=== PATIENT | female | born 1950 | race Caucasian/White ===

== ENCOUNTER 2023-12-29 20:05 | Emergency (ER) | payer OTHER, MEDICAID ==
[~2023-12-29] VITALS: Ht 157.5 cm; Wt 55.3 kg
[2023-12-29 20:08] VITALS: BP_SYST 142; PULSE 86; RESP 14; TEMP 97.2; O2SAT 96
[2023-12-29] MEDS: IBUPROFEN 600 MG TABLET PO ONE (20:56)
[2023-12-29] MEDS: HYDROcodone/ACETAMIN 5-325 MG TAB (NORCO/ VICODIN) PO ONE (20:57)
[2023-12-29] MEDS ORDERED: TRAM50TA2 PO (21:45)
[2023-12-29] MEDS ORDERED: IBUP-1969 PO (21:45)
[2023-12-29 22:57] VITALS: BP_SYST 139; PULSE 86; RESP 14; TEMP 97.2; O2SAT 96
== END 2023-12-29 22:57 | disposition home or self-care (01) ==
LOC: SED 20:05
DX: S93.491A Sprain of other ligament of right ankle, initial encounter (principal); S93.691A Other sprain of right foot, initial encounter; I10 Essential (primary) hypertension; J44.9 Chronic obstructive pulmonary disease, unspecified; Z88.1 Allergy status to other antibiotic agents; X50.1XXA Overexertion from prolonged static or awkward postures, initial encounter; Y93.89 Activity, other specified; Y92.89 Other specified places as the place of occurrence of the external cause; Y99.8 Other external cause status
CPT/HCPCS: 99284

== ENCOUNTER 2024-01-04 13:03 | Inpatient (IN) | payer OTHER, MEDICAID ==
[~2024-01-04] VITALS: Ht 154.9 cm; Wt 55.3 kg
[~2024-01-04 13:03] MED LIST: IBUP-1969 PO; TRAM50TA2 PO
[2024-01-04 13:08] VITALS: BP_SYST 130; PULSE 86; RESP 16; TEMP 98; O2SAT 94
[2024-01-04] MEDS ORDERED: NEU300 PO (13:57)
[2024-01-04] MEDS ORDERED: BACL10TA PO (13:57)
[2024-01-04] MEDS ORDERED: ASPI-1393 PO (13:57)
[2024-01-04] MEDS ORDERED: OLAN20TA82 PO (13:57)
[2024-01-04] MEDS ORDERED: METO-442 PO (13:57)
[2024-01-04] MEDS ORDERED: ESCI10TA PO (13:57)
[2024-01-04] MEDS ORDERED: RAME8TAB15 PO (13:57)
[2024-01-04] MEDS ORDERED: CARB100T PO (13:57)
[2024-01-04] MEDS ORDERED: FLUT1AER INH (13:57)
[2024-01-04] MEDS ORDERED: BENZ1TAB7 PO (13:57)
[2024-01-04 14:08] LABS: BASOPHILS % (AUTO) 0.4 % (0.0-2.0); EOSINOPHILS # (AUTO) 0.1 K/uL (0.0-0.4); EOSINOPHILS % (AUTO) 1.9 % (0.0-4.0); HEMATOCRIT 45.1 % (36-48); HEMOGLOBIN 15.1 g/dL (12.0-16.0); LYMPHOCYTES # (AUTO) 3.1 K/uL (1.0-5.5); LYMPHOCYTES % (AUTO) 41.3 % (20.5-51.5); MEAN CORPUSCULAR HEMOGLOBIN 32 pg (27-31); MEAN CORPUSCULAR HGB CONC 34 % (32-36); MEAN CORPUSCULAR VOLUME 96 fL (79.0-98.0); MONOCYTES # (AUTO) 0.7 K/uL (0.0-1.0); MONOCYTES % (AUTO) 9.4 % (1.7-9.3); NEUTROPHILS # (AUTO) 3.5 K/uL (1.8-7.7); PLATELET COUNT (AUTO) 187 K/uL (130-430); RED BLOOD CELL COUNT(AUTO) 4.68 MIL/uL (4.2-6.2); RED CELL DISTRIBUTION WIDTH 13.8 % (9.0-15.0); WHITE BLOOD COUNT (AUTO) 7.5 K/uL (4.8-10.8)
[2024-01-04 14:32] LABS: PROTHROMBIN TIME 10.5 SECS (9.5-12.5)
[2024-01-04 14:42] LABS: ALANINE AMINOTRANSFERASE 78 U/L (12-78); ANION GAP 3 (5-15); ASPARTATE AMINOTRANSFERASE 78 U/L (10-37); BILIRUBIN,DIRECT 0.2 mg/dL (0.0-0.3); CALCIUM 8.9 mg/dL (8.4-11.0); CARBON DIOXIDE 35 mmol/L (23-29); CHLORIDE 102 mmol/L (98-107); CREATINE KINASE, TOTAL 76 U/L (26-192); CREATININE 0.54 mg/dL (0.55-1.30); GLUCOSE 98 mg/dL (74-106); POTASSIUM 4.3 mmol/L (3.5-5.1); SODIUM SERUM 140 mmol/L (136-145); TOTAL BILIRUBIN 0.8 mg/dL (0.0-1.0); TOTAL PROTEIN, SERUM 7.5 g/dL (6.4-8.3); UREA NITROGEN, BLOOD 11 mg/dL (8-21)
[2024-01-04 17:26] LABS: BILIRUBIN,URINE NEGATIVE (NEGATIVE); BLOOD, URINE NEGATIVE (NEGATIVE); CLARITY/URINE CLEAR (CLEAR); COLOR,URINE YELLOW (YELLOW); GLUCOSE,URINE NEGATIVE (NEGATIVE); KETONES,URINE NEGATIVE (NEGATIVE); LEUKOCYTE ESTERASE ,URINE NEGATIVE (NEGATIVE); NITRITE, URINE NEGATIVE (NEGATIVE); PH,URINE 6.5 (5.0-8.0); PROTEIN URINE NEGATIVE (NEGATIVE)
[2024-01-04] MEDS ORDERED: ONDANSETRON HCL 4 MG/2 ML VIAL IVP PRN (18:15)
[2024-01-04] MEDS: ALBUTEROL SULFATE 0.083% 2.5 MG/3 ML VIAL.NEB INH SCH (19:35)
[2024-01-04 19:42] VITALS: BP_SYST 140; PULSE 75; O2SAT 92
[2024-01-04 19:49] VITALS: O2SAT 92
[2024-01-04 20:15] VITALS: BP_SYST 150; PULSE 71; RESP 22; TEMP 97.7; O2SAT 94
[2024-01-04 23:26] VITALS: O2SAT 91
[2024-01-04] MEDS: LORazepam 2 MG/ML VIAL IVP PRN (23:57)
[2024-01-04] MEDS: ACETAMINOPHEN 325 MG TABLET PO PRN (23:59)
[2024-01-05] VITALS (11 sets, daily range): BP systolic 126–140; PULSE 65–105; RESP 18–20; TEMP 97.1–97.5; O2SAT 90–98
[2024-01-05 13:09] LABS: BASOPHILS % (AUTO) 0.3 % (0.0-2.0); EOSINOPHILS # (AUTO) 0.1 K/uL (0.0-0.4); EOSINOPHILS % (AUTO) 0.9 % (0.0-4.0); HEMATOCRIT 48.7 % (36-48); HEMOGLOBIN 16.1 g/dL (12.0-16.0); LYMPHOCYTES % (AUTO) 32.4 % (20.5-51.5); MEAN CORPUSCULAR HEMOGLOBIN 32 pg (27-31); MEAN CORPUSCULAR HGB CONC 33 % (32-36); MEAN CORPUSCULAR VOLUME 97 fL (79.0-98.0); MONOCYTES # (AUTO) 0.5 K/uL (0.0-1.0); MONOCYTES % (AUTO) 8.6 % (1.7-9.3); NEUTROPHILS # (AUTO) 3.6 K/uL (1.8-7.7); NEUTROPHILS % (AUTO) 57.8 % (40.0-70.0); PLATELET COUNT (AUTO) 153 K/uL (130-430); RED BLOOD CELL COUNT(AUTO) 4.99 MIL/uL (4.2-6.2); RED CELL DISTRIBUTION WIDTH 13.7 % (9.0-15.0); WHITE BLOOD COUNT (AUTO) 6.2 K/uL (4.8-10.8)
[2024-01-05 13:26] LABS: ALANINE AMINOTRANSFERASE 93 U/L (12-78); ALBUMIN 3.3 g/dL (3.4-4.8); ANION GAP 8 (5-15); ASPARTATE AMINOTRANSFERASE 88 U/L (10-37); CALCIUM 8.8 mg/dL (8.4-11.0); CARBON DIOXIDE 30 mmol/L (23-29); CHLORIDE 101 mmol/L (98-107); CREATININE 0.58 mg/dL (0.55-1.30); GLUCOSE 97 mg/dL (74-106); SODIUM SERUM 139 mmol/L (136-145); TOTAL BILIRUBIN 0.8 mg/dL (0.0-1.0); TOTAL PROTEIN, SERUM 7.3 g/dL (6.4-8.3); UREA NITROGEN, BLOOD 11 mg/dL (8-21)
[2024-01-05] MEDS: METOPROLOL TARTRATE 50 MG TABLET PO SCH (20:28)
[2024-01-05] MEDS ORDERED: OLANZapine 10 MG TABLET PO SCH (21:00)
[2024-01-06] VITALS (10 sets, daily range): BP systolic 116–132; PULSE 65–97; RESP 16–18; TEMP 96.7–97.9; O2SAT 90–95
[2024-01-06 05:17] LABS: BASOPHILS % (AUTO) 0.3 % (0.0-2.0); EOSINOPHILS % (AUTO) 0.5 % (0.0-4.0); HEMOGLOBIN 14.3 g/dL (12.0-16.0); LYMPHOCYTES # (AUTO) 2.5 K/uL (1.0-5.5); LYMPHOCYTES % (AUTO) 30.1 % (20.5-51.5); MEAN CORPUSCULAR HEMOGLOBIN 33 pg (27-31); MEAN CORPUSCULAR HGB CONC 34 % (32-36); MEAN CORPUSCULAR VOLUME 96 fL (79.0-98.0); MONOCYTES # (AUTO) 0.7 K/uL (0.0-1.0); MONOCYTES % (AUTO) 8.9 % (1.7-9.3); NEUTROPHILS % (AUTO) 60.2 % (40.0-70.0); PLATELET COUNT (AUTO) 186 K/uL (130-430); RED BLOOD CELL COUNT(AUTO) 4.36 MIL/uL (4.2-6.2); WHITE BLOOD COUNT (AUTO) 8.3 K/uL (4.8-10.8)
[2024-01-06 05:22] LABS: ALANINE AMINOTRANSFERASE 82 U/L (12-78); ALBUMIN 2.8 g/dL (3.4-4.8); ANION GAP 6 (5-15); ASPARTATE AMINOTRANSFERASE 88 U/L (10-37); CARBON DIOXIDE 32 mmol/L (23-29); CHLORIDE 104 mmol/L (98-107); GLUCOSE 104 mg/dL (74-106); POTASSIUM 3.3 mmol/L (3.5-5.1); SODIUM SERUM 142 mmol/L (136-145); TOTAL BILIRUBIN 0.8 mg/dL (0.0-1.0); TOTAL PROTEIN, SERUM 6.9 g/dL (6.4-8.3)
[2024-01-06 06:29] LABS: UREA NITROGEN, BLOOD 12 mg/dL (8-21)
[2024-01-06] MEDS: CELECOXIB 100 MG CAPSULE ONE (07:50)
[2024-01-06] MEDS ORDERED: ESCITALOPRAM OXALATE 10 MG TABLET PO SCH (09:00)
[2024-01-06] MEDS: FLUTICASONE/VILANTEROL 1 EACH BLST.W.DEV INH SCH (09:00)
[2024-01-06] MEDS: NICOTINE 7 MG/24 HR PATCH.TD24 TD SCH (10:27)
[2024-01-06] MEDS: ASPIRIN 81 MG TABLET(ECOTRIN) PO SCH (10:45)
[2024-01-06] MEDS: NACL 0.9% 1,000 ML IV PRN (10:47)
[2024-01-06] MEDS: POTASSIUM CHLORIDE 20 MEQ TABLET.ER PO SCH (13:24)
[2024-01-06] MEDS ORDERED: ALBUTEROL SULFATE 0.083% 2.5 MG/3 ML VIAL.NEB INH PRN (16:30)
[2024-01-06] MEDS: BUDESONIDE 0.5 MG/2 ML AMPUL.NEB INH SCH (20:08)
[2024-01-06] MEDS ORDERED: POTASSIUM CHLORIDE 20 MEQ TABLET.ER PO SCH (21:00)
[2024-01-07] VITALS: BP_SYST 113; PULSE 65; RESP 18; TEMP 97.3; O2SAT 97
[2024-01-07 06:45] LABS: ALANINE AMINOTRANSFERASE 76 U/L (12-78); ALBUMIN 2.7 g/dL (3.4-4.8); ANION GAP 6 (5-15); ASPARTATE AMINOTRANSFERASE 84 U/L (10-37); CALCIUM 8.2 mg/dL (8.4-11.0); CARBON DIOXIDE 29 mmol/L (23-29); CHLORIDE 108 mmol/L (98-107); GLUCOSE 86 mg/dL (74-106); POTASSIUM 4.1 mmol/L (3.5-5.1); SODIUM SERUM 143 mmol/L (136-145); TOTAL BILIRUBIN 0.6 mg/dL (0.0-1.0); TOTAL PROTEIN, SERUM 6.5 g/dL (6.4-8.3); UREA NITROGEN, BLOOD 9 mg/dL (8-21)
[2024-01-07 07:10] VITALS: PULSE 84; O2SAT 92
[2024-01-07 07:51] LABS: BASOPHILS % (AUTO) 0.3 % (0.0-2.0); EOSINOPHILS # (AUTO) 0.1 K/uL (0.0-0.4); EOSINOPHILS % (AUTO) 1.1 % (0.0-4.0); HEMATOCRIT 43.8 % (36-48); HEMOGLOBIN 14.7 g/dL (12.0-16.0); LYMPHOCYTES # (AUTO) 3.4 K/uL (1.0-5.5); LYMPHOCYTES % (AUTO) 37.7 % (20.5-51.5); MEAN CORPUSCULAR HEMOGLOBIN 33 pg (27-31); MEAN CORPUSCULAR HGB CONC 34 % (32-36); MEAN CORPUSCULAR VOLUME 98 fL (79.0-98.0); MONOCYTES # (AUTO) 0.7 K/uL (0.0-1.0); MONOCYTES % (AUTO) 7.9 % (1.7-9.3); NEUTROPHILS # (AUTO) 4.8 K/uL (1.8-7.7); PLATELET COUNT (AUTO) 168 K/uL (130-430); RED BLOOD CELL COUNT(AUTO) 4.49 MIL/uL (4.2-6.2); RED CELL DISTRIBUTION WIDTH 13.6 % (9.0-15.0); WHITE BLOOD COUNT (AUTO) 9.1 K/uL (4.8-10.8)
[2024-01-07 10:20] VITALS: O2SAT 93
[2024-01-07 12:28] VITALS: BP_SYST 147; PULSE 84; RESP 17; TEMP 97.2; O2SAT 96
[2024-01-07 14:50] VITALS: BP_SYST 142; PULSE 78; RESP 18; TEMP 97.8; O2SAT 98
[2024-01-07 16:31] VITALS: BP_SYST 137; PULSE 85; RESP 16; TEMP 97.5; O2SAT 96
== END 2024-01-07 16:27 | disposition home or self-care (01) | DRG 917 ==
LOC: SED 13:03 → SMU 18:03 → STU 01-06 18:26
PROVIDERS: ADMIT Family Medicine; ATTEND Family Medicine
DX: T50.911A Poisoning by multiple unspecified drugs, medicaments and biological substances, accidental (unintentional), initial encounter (principal); J96.01 Acute respiratory failure with hypoxia; E46 Unspecified protein-calorie malnutrition; E87.6 Hypokalemia; R42 Dizziness and giddiness; J44.9 Chronic obstructive pulmonary disease, unspecified; I10 Essential (primary) hypertension; F32.A Depression, unspecified; F41.9 Anxiety disorder, unspecified; Z68.23 Body mass index [BMI] 23.0-23.9, adult; Y92.9 Unspecified place or not applicable; I16.0 Hypertensive urgency
CPT/HCPCS: 36415; 70450-TC; 71045; 72125-TC; 80048; 80053; 80076; 81001; 81003; 82550; 83735; 85025; 85610; 85730; 87230; 93005; 93306; 94070; 94640; 94760; 97110-GP; 97116-GP; 97530-GO; 97530-GP; 99285; G0378; J2060; J7626

== ENCOUNTER 2024-03-24 17:58 | Inpatient (IN) | payer OTHER, MEDICAID ==
[~2024-03-24] VITALS: Ht 157.5 cm; Wt 52.2 kg
[~2024-03-24 17:58] MED LIST changes: +ASPI-1393 PO; +BACL10TA PO; +BENZ1TAB7 PO; +CARB100T PO; +ESCI10TA PO; +FLUT1AER INH; +METO-442 PO; +NEU300 PO; +OLAN20TA82 PO; +RAME8TAB15 PO
[2024-03-24 18:00] VITALS: BP_SYST 102; PULSE 75; RESP 16; TEMP 97.9; O2SAT 100
[2024-03-24 18:12] LABS: ABG O2 SAT% ESTIMATE 99.3 % (94.0-98.0); BLOOD GAS BASE EXCESS -1.4 mmol/L (-2.0-3.0); BLOOD GAS HCO3 27.3 mmol/L (21.0-28.0); BLOOD GAS PH 7.254 (7.350-7.450)
[2024-03-24 18:17] LABS: ALLEN'S TEST POSITIVE (P)
[2024-03-24 19:26] LABS: HEMOGLOBIN 13.5 g/dL (12.0-16.0); MEAN CORPUSCULAR HEMOGLOBIN 34 pg (27-31); MEAN CORPUSCULAR HGB CONC 35 % (32-36); RED CELL DISTRIBUTION WIDTH 13.9 % (9.0-15.0)
[2024-03-24 19:35] LABS: HEMATOCRIT 39.2 % (36-48); MEAN CORPUSCULAR VOLUME 99 fL (79.0-98.0); RED BLOOD CELL COUNT(AUTO) 3.97 MIL/uL (4.2-6.2); WHITE BLOOD COUNT (AUTO) 8.6 K/uL (4.8-10.8)
[2024-03-24 19:38] LABS: ALANINE AMINOTRANSFERASE 63 U/L (12-78); ALBUMIN 2.8 g/dL (3.4-4.8); ANION GAP -1 (5-15); ASPARTATE AMINOTRANSFERASE 104 U/L (10-37); CALCIUM 8.7 mg/dL (8.4-11.0); CARBON DIOXIDE 39 mmol/L (23-29); CHLORIDE 106 mmol/L (98-107); CREATININE 1.49 mg/dL (0.55-1.30); GLUCOSE 113 mg/dL (74-106); SODIUM SERUM 144 mmol/L (136-145); TOTAL BILIRUBIN 0.6 mg/dL (0.0-1.0); TOTAL PROTEIN, SERUM 7.1 g/dL (6.4-8.3); UREA NITROGEN, BLOOD 17 mg/dL (8-21)
[2024-03-24 19:39] LABS: INR 1.1 (0.8-1.2); PROTHROMBIN TIME 11.3 SECS (9.5-12.5)
[2024-03-24 19:53] LABS: PLATELET COUNT (AUTO) 146 K/uL (130-430)
[2024-03-24 19:54] LABS: BILIRUBIN,DIRECT 0.3 mg/dL (0.0-0.3); CREATINE KINASE, TOTAL 1370 U/L (26-192); LACTATE DEHYDROGENASE 280 U/L (81-234)
[2024-03-24 20:06] LABS: BAND % (MANUAL) 19 % (0-6); BASOPHILS % (MANUAL) 0 % (0-2); EOSINOPHILS % (MANUAL) 0 % (0-7); LYMPHOCYTES % (MANUAL) 33 % (20-46); MONOCYTES % (MANUAL) 13 % (0-11)
[2024-03-24 20:07] LABS: OVALOCYTES FEW; PLATELET ESTIMATE ADEQUATE (ADEQUATE); TEAR DROP CELLS FEW
[2024-03-24 20:24] LABS: CKMB RELATIVE INDEX 2.3 (0.0-2.9); CREATINE KINASE MB 31.7 ng/mL (0-3.6)
[2024-03-24] MEDS: cefTRIAXone 1 GM in D5W 50 ML IV ONE (20:46)
[2024-03-24] MEDS ORDERED: cefTRIAXone 1 GM VIAL ONE (20:47)
[2024-03-24] MEDS: NACL 0.9% 1,000 ML IV ONE (20:47)
[2024-03-24 21:02] LABS: BILIRUBIN,URINE 1+ (NEGATIVE); BLOOD, URINE 1+ (NEGATIVE); CLARITY/URINE CLEAR (CLEAR); COLOR,URINE YELLOW (YELLOW); GLUCOSE,URINE NEGATIVE (NEGATIVE); KETONES,URINE TRACE (NEGATIVE); LEUKOCYTE ESTERASE ,URINE NEGATIVE (NEGATIVE); NITRITE, URINE NEGATIVE (NEGATIVE); PROTEIN URINE 1+ (NEGATIVE)
[2024-03-24 21:20] LABS: BACTERIA,URINE None Seen /HPF (None Seen)
[2024-03-24] MEDS: ENOXAPARIN SODIUM 60 MG/0.6 ML SYRINGE SUBCUT ONE (21:38)
[2024-03-24] MEDS: NALOXONE HCL 2 MG/2 ML SYR IVP ONE (21:43)
[2024-03-24 21:59] LABS: COVID19 ANTIGEN SOFIA FIA NEGATIVE (NEGATIVE)
[2024-03-24 22:00] VITALS: BP_SYST 112; PULSE 75; O2SAT 99
[2024-03-24 22:07] LABS: INFLUENZA TYPE A POSITIVE (NEGATIVE); INFLUENZA TYPE B POSITIVE (NEGATIVE)
[2024-03-24] MEDS: D5/0.45 NS 1,000 ML IV SCH (23:39)
[2024-03-24] MEDS ORDERED: MOM PO (23:47)
[2024-03-24] MEDS ORDERED: ONDA-8 PO (23:47)
[2024-03-24] MEDS ORDERED: TRAZ150T77 PO (23:47)
[2024-03-24] MEDS ORDERED: VITD2000 PO (23:47)
[2024-03-24] MEDS ORDERED: ALBU90AE3 INH (23:47)
[2024-03-24] MEDS ORDERED: ALBU2.5V7 HHN (23:47)
[2024-03-25] VITALS (35 sets, daily range): BP systolic 84–163; PULSE 56–102; RESP 18–31; TEMP 96.2–100.4; O2SAT 91–99
[2024-03-25] MEDS ORDERED: NOREPINEPHRINE BITARTRATE 4 MG in NS 246 ML IV PRN (01:15)
[2024-03-25] MEDS ORDERED: HEPARIN SODIUM,PORCINE 2000 UNITS/0.4 ML BOLUS IVP PRN (01:30)
[2024-03-25] MEDS: HEPARIN 25,000 UNITS/D5W 250ML 250 ML IV PRN (03:01)
[2024-03-25 04:04] LABS: BLOOD GAS BASE EXCESS -1.3 mmol/L (-2.0-3.0); BLOOD GAS HCO3 26.1 mmol/L (21.0-28.0); BLOOD GAS PCO2 54.6 mmHg (32.0-45.0); BLOOD GAS PH 7.297 (7.350-7.450); BLOOD GAS PO2 69.9 mmHg (83.0-108.0)
[2024-03-25 04:05] LABS: ALLEN'S TEST POSITIVE (P)
[2024-03-25] MEDS ORDERED: FLU VACC QS2023-24(6MOS UP)/PF 0.5 ML/SYR SYRINGE I.M. PRN (04:15)
[2024-03-25 06:44] LABS: BASOPHILS % (AUTO) 0.2 % (0.0-2.0); EOSINOPHILS % (AUTO) 0.4 % (0.0-4.0); HEMOGLOBIN 12.7 g/dL (12.0-16.0); LYMPHOCYTES # (AUTO) 3.7 K/uL (1.0-5.5); LYMPHOCYTES % (AUTO) 43.3 % (20.5-51.5); MEAN CORPUSCULAR HEMOGLOBIN 33 pg (27-31); MEAN CORPUSCULAR HGB CONC 33 % (32-36); MEAN CORPUSCULAR VOLUME 100 fL (79.0-98.0); MONOCYTES # (AUTO) 1.2 K/uL (0.0-1.0); MONOCYTES % (AUTO) 13.5 % (1.7-9.3); NEUTROPHILS # (AUTO) 3.7 K/uL (1.8-7.7); NEUTROPHILS % (AUTO) 42.6 % (40.0-70.0); PLATELET COUNT (AUTO) 120 K/uL (130-430); RED CELL DISTRIBUTION WIDTH 13.8 % (9.0-15.0); WHITE BLOOD COUNT (AUTO) 8.6 K/uL (4.8-10.8)
[2024-03-25 06:49] LABS: ANION GAP 1 (5-15); CALCIUM 8.4 mg/dL (8.4-11.0); CARBON DIOXIDE 36 mmol/L (23-29); CHLORIDE 108 mmol/L (98-107); CREATININE 1.03 mg/dL (0.55-1.30); GLUCOSE 118 mg/dL (74-106); POTASSIUM 3.8 mmol/L (3.5-5.1); SODIUM SERUM 145 mmol/L (136-145); UREA NITROGEN, BLOOD 17 mg/dL (8-21)
[2024-03-25] MEDS ORDERED: ONDANSETRON HCL 4 MG/2 ML VIAL IVP PRN (11:15)
[2024-03-25] MEDS ORDERED: NALOXONE HCL 0.4 MG/ML AMP (NARCAN) IVP PRN (11:15)
[2024-03-25] MEDS: LORazepam 2 MG/ML VIAL IVP PRN (14:16)
[2024-03-26] VITALS (31 sets, daily range): BP systolic 117–165; PULSE 59–93; RESP 17–25; TEMP 97.8–98.3; O2SAT 90–99
[2024-03-26 05:01] LABS: BASOPHILS % (AUTO) 0.2 % (0.0-2.0); EOSINOPHILS % (AUTO) 0.4 % (0.0-4.0); HEMATOCRIT 38.4 % (36-48); HEMOGLOBIN 12.9 g/dL (12.0-16.0); LYMPHOCYTES # (AUTO) 2.8 K/uL (1.0-5.5); LYMPHOCYTES % (AUTO) 36.6 % (20.5-51.5); MEAN CORPUSCULAR HEMOGLOBIN 33 pg (27-31); MEAN CORPUSCULAR HGB CONC 33 % (32-36); MEAN CORPUSCULAR VOLUME 99 fL (79.0-98.0); MONOCYTES # (AUTO) 0.9 K/uL (0.0-1.0); MONOCYTES % (AUTO) 11.4 % (1.7-9.3); NEUTROPHILS % (AUTO) 51.4 % (40.0-70.0); PLATELET COUNT (AUTO) 134 K/uL (130-430); RED CELL DISTRIBUTION WIDTH 13.7 % (9.0-15.0); WHITE BLOOD COUNT (AUTO) 7.8 K/uL (4.8-10.8)
[2024-03-26 05:38] LABS: ANION GAP 3 (5-15); CALCIUM 8.3 mg/dL (8.4-11.0); CARBON DIOXIDE 35 mmol/L (23-29); CHLORIDE 106 mmol/L (98-107); CREATINE KINASE, TOTAL 604 U/L (26-192); CREATININE 0.65 mg/dL (0.55-1.30); GLUCOSE 123 mg/dL (74-106); POTASSIUM 3.2 mmol/L (3.5-5.1); SODIUM SERUM 144 mmol/L (136-145); UREA NITROGEN, BLOOD 6 mg/dL (8-21)
[2024-03-26 06:02] LABS: CKMB RELATIVE INDEX 1.5 (0.0-2.9)
[2024-03-26 09:17] LABS: BLOOD GAS PH 7.459 (7.350-7.450)
[2024-03-26 09:18] LABS: ABG O2 SAT% ESTIMATE 89.3 % (94.0-98.0); ALLEN'S TEST POSITIVE (P); BLOOD GAS BASE EXCESS 6.2 mmol/L (-2.0-3.0); BLOOD GAS HCO3 30.8 mmol/L (21.0-28.0); BLOOD GAS PCO2 44.4 mmHg (32.0-45.0); BLOOD GAS PO2 59.7 mmHg (83.0-108.0)
[2024-03-26] MEDS: KCL 40 mEq in 100 mL (PREMIX) 100 ML IV ONE (09:23)
[2024-03-26] MEDS: CALCIUM GLUCONATE 2 GM in NS 100 ML IV ONE (09:24)
[2024-03-26] MEDS: CALCIUM GLUCONATE 1 GM/10 ML VIAL ONE (09:25)
[2024-03-26] MEDS ORDERED: COMMUNICATION ORDER XX PRN (12:00)
[2024-03-26] MEDS ORDERED: cefTRIAXone 1 GM in D5W 50 ML IV SCH (12:00)
[2024-03-26] MEDS: OSELTAMIVIR PHOSPHATE 75 MG CAPSULE PO ONE (13:43)
[2024-03-26] MEDS: methylPREDNISolone SOD SUCC/PF 62.5 MG/ML VIAL IVP ONE (13:43)
[2024-03-26] MEDS: INSULIN REGULAR, HUMAN 100 UNITS/ML, 3 ML VIAL (humuLIN R) SUBCUT PRN (19:04)
[2024-03-26] MEDS: OSELTAMIVIR PHOSPHATE 30 MG CAPSULE PO SCH (22:28)
[2024-03-26] MEDS: methylPREDNISolone SOD SUCC/PF 62.5 MG/ML VIAL IVP SCH (22:29)
[2024-03-27] VITALS (29 sets, daily range): BP systolic 102–158; PULSE 58–94; RESP 15–24; TEMP 97.2–98.5; O2SAT 91–100
[2024-03-27 07:28] LABS: BASOPHILS % (AUTO) 0.3 % (0.0-2.0); EOSINOPHILS % (AUTO) 0.1 % (0.0-4.0); HEMATOCRIT 38.3 % (36-48); HEMOGLOBIN 13.2 g/dL (12.0-16.0); LYMPHOCYTES # (AUTO) 1.5 K/uL (1.0-5.5); LYMPHOCYTES % (AUTO) 20.1 % (20.5-51.5); MEAN CORPUSCULAR HEMOGLOBIN 34 pg (27-31); MEAN CORPUSCULAR HGB CONC 35 % (32-36); MEAN CORPUSCULAR VOLUME 99 fL (79.0-98.0); MONOCYTES # (AUTO) 0.3 K/uL (0.0-1.0); MONOCYTES % (AUTO) 4.1 % (1.7-9.3); NEUTROPHILS # (AUTO) 5.5 K/uL (1.8-7.7); NEUTROPHILS % (AUTO) 75.4 % (40.0-70.0); PLATELET COUNT (AUTO) 210 K/uL (130-430); RED BLOOD CELL COUNT(AUTO) 3.89 MIL/uL (4.2-6.2); RED CELL DISTRIBUTION WIDTH 13.7 % (9.0-15.0); WHITE BLOOD COUNT (AUTO) 7.3 K/uL (4.8-10.8)
[2024-03-27 08:11] LABS: ANION GAP 7 (5-15); CALCIUM 8.8 mg/dL (8.4-11.0); CARBON DIOXIDE 31 mmol/L (23-29); CHLORIDE 107 mmol/L (98-107); CREATINE KINASE, TOTAL 147 U/L (26-192); CREATININE 0.65 mg/dL (0.55-1.30); GLUCOSE 155 mg/dL (74-106); POTASSIUM 3.7 mmol/L (3.5-5.1); SODIUM SERUM 145 mmol/L (136-145); UREA NITROGEN, BLOOD 5 mg/dL (8-21)
[2024-03-28] VITALS (24 sets, daily range): BP systolic 105–142; PULSE 44–86; RESP 11–26; TEMP 97.2–98.8; O2SAT 92–99
[2024-03-28 05:27] LABS: ERYTHROCYTE SEDIMENTATION RATE 39 MM/HR (0-20)
[2024-03-28 05:34] LABS: BASOPHILS % (AUTO) 0.2 % (0.0-2.0); HEMATOCRIT 36.7 % (36-48); HEMOGLOBIN 12.3 g/dL (12.0-16.0); LYMPHOCYTES # (AUTO) 1.4 K/uL (1.0-5.5); MEAN CORPUSCULAR HEMOGLOBIN 33 pg (27-31); MEAN CORPUSCULAR HGB CONC 34 % (32-36); MEAN CORPUSCULAR VOLUME 99 fL (79.0-98.0); MONOCYTES # (AUTO) 0.6 K/uL (0.0-1.0); MONOCYTES % (AUTO) 7.7 % (1.7-9.3); NEUTROPHILS # (AUTO) 5.5 K/uL (1.8-7.7); NEUTROPHILS % (AUTO) 73.1 % (40.0-70.0); PLATELET COUNT (AUTO) 141 K/uL (130-430); RED BLOOD CELL COUNT(AUTO) 3.72 MIL/uL (4.2-6.2); RED CELL DISTRIBUTION WIDTH 13.7 % (9.0-15.0); WHITE BLOOD COUNT (AUTO) 7.5 K/uL (4.8-10.8)
[2024-03-28 06:23] LABS: ALANINE AMINOTRANSFERASE 64 U/L (12-78); ALBUMIN 2.2 g/dL (3.4-4.8); ANION GAP 2 (5-15); ASPARTATE AMINOTRANSFERASE 76 U/L (10-37); CALCIUM 8.5 mg/dL (8.4-11.0); CARBON DIOXIDE 36 mmol/L (23-29); CHLORIDE 109 mmol/L (98-107); CREATINE KINASE, TOTAL 57 U/L (26-192); CREATININE 0.63 mg/dL (0.55-1.30); GLUCOSE 155 mg/dL (74-106); POTASSIUM 3.4 mmol/L (3.5-5.1); SODIUM SERUM 147 mmol/L (136-145); TOTAL BILIRUBIN 0.3 mg/dL (0.0-1.0); TOTAL PROTEIN, SERUM 6.1 g/dL (6.4-8.3); UREA NITROGEN, BLOOD 5 mg/dL (8-21)
[2024-03-28] MEDS: ATORVASTATIN 20 MG TABLET PO SCH (09:30)
[2024-03-28] MEDS: ASPIRIN 81 MG TABLET(ECOTRIN) PO SCH (09:30)
[2024-03-28] MEDS: LOSARTAN POTASSIUM 25 MG TABLET PO SCH (09:31)
[2024-03-28] MEDS: KCL 20 mEq in 100 mL (PREMIX) 100 ML IV SCH (13:30)
[2024-03-28] MEDS: MORPHINE 4 MG INJ. 4 MG/ML VIAL IVP PRN (14:05)
[2024-03-29] VITALS (24 sets, daily range): BP systolic 112–148; PULSE 42–93; RESP 9–19; TEMP 96.8–98.5; O2SAT 93–100
[2024-03-29 06:07] LABS: ERYTHROCYTE SEDIMENTATION RATE 29 MM/HR (0-20)
[2024-03-29 06:12] LABS: BASOPHILS % (AUTO) 0.2 % (0.0-2.0); HEMATOCRIT 35.8 % (36-48); HEMOGLOBIN 11.9 g/dL (12.0-16.0); LYMPHOCYTES # (AUTO) 1.4 K/uL (1.0-5.5); LYMPHOCYTES % (AUTO) 20.5 % (20.5-51.5); MEAN CORPUSCULAR HEMOGLOBIN 33 pg (27-31); MEAN CORPUSCULAR HGB CONC 33 % (32-36); MEAN CORPUSCULAR VOLUME 99 fL (79.0-98.0); MONOCYTES # (AUTO) 0.4 K/uL (0.0-1.0); MONOCYTES % (AUTO) 6.4 % (1.7-9.3); NEUTROPHILS # (AUTO) 4.9 K/uL (1.8-7.7); NEUTROPHILS % (AUTO) 72.9 % (40.0-70.0); PLATELET COUNT (AUTO) 156 K/uL (130-430); RED BLOOD CELL COUNT(AUTO) 3.63 MIL/uL (4.2-6.2); RED CELL DISTRIBUTION WIDTH 14.1 % (9.0-15.0); WHITE BLOOD COUNT (AUTO) 6.8 K/uL (4.8-10.8)
[2024-03-29 06:29] LABS: ANION GAP 4 (5-15); CALCIUM 8.2 mg/dL (8.4-11.0); CARBON DIOXIDE 32 mmol/L (23-29); CHLORIDE 107 mmol/L (98-107); CREATININE 0.55 mg/dL (0.55-1.30); GLUCOSE 170 mg/dL (74-106); POTASSIUM 4.1 mmol/L (3.5-5.1); SODIUM SERUM 143 mmol/L (136-145); UREA NITROGEN, BLOOD 8 mg/dL (8-21)
[2024-03-29] MEDS: HEPARIN SODIUM,PORCINE 3000 UNITS/0.6 ML BOLUS IVP PRN (11:53)
[2024-03-30] VITALS (14 sets, daily range): BP systolic 123–161; PULSE 52–89; RESP 10–18; TEMP 96.9–98.3; O2SAT 90–97
[2024-03-30] MEDS: MORPHINE 2 MG/ML INJ. SYRINGE IVP PRN (05:46)
[2024-03-30 07:34] LABS: BASOPHILS % (AUTO) 0.2 % (0.0-2.0); EOSINOPHILS % (AUTO) 0.1 % (0.0-4.0); HEMATOCRIT 39.2 % (36-48); HEMOGLOBIN 12.9 g/dL (12.0-16.0); LYMPHOCYTES # (AUTO) 1.6 K/uL (1.0-5.5); LYMPHOCYTES % (AUTO) 14.2 % (20.5-51.5); MEAN CORPUSCULAR HEMOGLOBIN 33 pg (27-31); MEAN CORPUSCULAR HGB CONC 33 % (32-36); MEAN CORPUSCULAR VOLUME 99 fL (79.0-98.0); MONOCYTES # (AUTO) 0.6 K/uL (0.0-1.0); MONOCYTES % (AUTO) 5.4 % (1.7-9.3); NEUTROPHILS % (AUTO) 80.1 % (40.0-70.0); PLATELET COUNT (AUTO) 177 K/uL (130-430); RED BLOOD CELL COUNT(AUTO) 3.97 MIL/uL (4.2-6.2); RED CELL DISTRIBUTION WIDTH 13.6 % (9.0-15.0); WHITE BLOOD COUNT (AUTO) 11.2 K/uL (4.8-10.8)
[2024-03-30 07:45] LABS: ERYTHROCYTE SEDIMENTATION RATE 21 MM/HR (0-20)
[2024-03-30 10:22] LABS: ALANINE AMINOTRANSFERASE 86 U/L (12-78); ALBUMIN 2.5 g/dL (3.4-4.8); ANION GAP 6 (5-15); ASPARTATE AMINOTRANSFERASE 89 U/L (10-37); CALCIUM 8.8 mg/dL (8.4-11.0); CARBON DIOXIDE 31 mmol/L (23-29); CHLORIDE 107 mmol/L (98-107); CREATININE 0.65 mg/dL (0.55-1.30); GLUCOSE 122 mg/dL (74-106); POTASSIUM 4.2 mmol/L (3.5-5.1); SODIUM SERUM 144 mmol/L (136-145); TOTAL BILIRUBIN 0.4 mg/dL (0.0-1.0); UREA NITROGEN, BLOOD 8 mg/dL (8-21)
[2024-03-31 06:25] LABS: ERYTHROCYTE SEDIMENTATION RATE 19 MM/HR (0-20)
[2024-03-31 06:31] LABS: BASOPHILS % (AUTO) 0.1 % (0.0-2.0); EOSINOPHILS % (AUTO) 0.1 % (0.0-4.0); HEMATOCRIT 38.8 % (36-48); HEMOGLOBIN 12.8 g/dL (12.0-16.0); LYMPHOCYTES # (AUTO) 2.1 K/uL (1.0-5.5); LYMPHOCYTES % (AUTO) 14.7 % (20.5-51.5); MEAN CORPUSCULAR HEMOGLOBIN 32 pg (27-31); MEAN CORPUSCULAR HGB CONC 33 % (32-36); MEAN CORPUSCULAR VOLUME 98 fL (79.0-98.0); MONOCYTES # (AUTO) 0.4 K/uL (0.0-1.0); MONOCYTES % (AUTO) 2.8 % (1.7-9.3); NEUTROPHILS # (AUTO) 11.6 K/uL (1.8-7.7); NEUTROPHILS % (AUTO) 82.3 % (40.0-70.0); PLATELET COUNT (AUTO) 172 K/uL (130-430); RED BLOOD CELL COUNT(AUTO) 3.97 MIL/uL (4.2-6.2); RED CELL DISTRIBUTION WIDTH 13.6 % (9.0-15.0); WHITE BLOOD COUNT (AUTO) 14.1 K/uL (4.8-10.8)
[2024-03-31 07:13] LABS: ANION GAP 4 (5-15); CALCIUM 8.3 mg/dL (8.4-11.0); CARBON DIOXIDE 33 mmol/L (23-29); CHLORIDE 106 mmol/L (98-107); CREATINE KINASE, TOTAL 41 U/L (26-192); CREATININE 0.63 mg/dL (0.55-1.30); GLUCOSE 139 mg/dL (74-106); POTASSIUM 3.6 mmol/L (3.5-5.1); SODIUM SERUM 143 mmol/L (136-145); UREA NITROGEN, BLOOD 13 mg/dL (8-21)
[2024-03-31 07:25] VITALS: BP_SYST 151; PULSE 80; RESP 16; TEMP 98.2; O2SAT 92
[2024-03-31] MEDS: predniSONE 20 MG TABLET PO ONE (09:49)
[2024-03-31] MEDS: predniSONE 20 MG TABLET ONE (09:51)
[2024-03-31] MEDS ORDERED: ALBUTEROL SULFATE INH SCH (10:45)
[2024-03-31] MEDS ORDERED: FLUTICASONE/VILANTEROL 1 EACH BLST.W.DEV INH SCH (10:45)
[2024-03-31] MEDS ORDERED: ESCITALOPRAM OXALATE 10 MG TABLET PO SCH (10:45)
[2024-03-31] MEDS ORDERED: ALBUTEROL SULFATE 0.083% 2.5 MG/3 ML VIAL.NEB INH PRN (11:30)
[2024-03-31 12:13] VITALS: BP_SYST 137; PULSE 84; RESP 16; TEMP 97.5; O2SAT 95
[2024-03-31] MEDS ORDERED: CARB100T13 PO (12:31)
[2024-03-31] MEDS: ALBUTEROL SULFATE 0.083% 2.5 MG/3 ML VIAL.NEB INH SCH (13:32)
[2024-03-31 14:18] VITALS: O2SAT 93
[2024-03-31] MEDS ORDERED: METOPROLOL TARTRATE 50 MG TABLET PO ONE (14:45)
[2024-03-31] MEDS: CALCIUM GLUC 2 GM/100ML-NACL 100 ML IV ONE (15:39)
[2024-03-31] MEDS: METOPROLOL SUCCINATE 50 MG TAB.SR.24H (TOPROL XL) PO ONE (15:41)
[2024-03-31] MEDS: GABAPENTIN 300 MG CAPSULE PO SCH (15:42)
[2024-03-31] MEDS: ASPIRIN 81 MG TABLET(ECOTRIN) PO ONE (15:42)
[2024-03-31] MEDS: CITALOPRAM HYDROBROMIDE 20 MG TABLET PO ONE (15:42)
[2024-03-31] MEDS: CHOLECALCIFEROL (VITAMIN D3) 2,000 UNIT TABLET PO ONE (15:43)
[2024-03-31] MEDS: NORMAL SALINE 5 ML DISP.SYRIN IVF SCH (15:43)
[2024-03-31 16:00] VITALS: BP_SYST 146; PULSE 77; RESP 18; TEMP 97.9; O2SAT 97
[2024-03-31 20:00] VITALS: BP_SYST 132; PULSE 77; RESP 20; TEMP 98
[2024-03-31] MEDS: BUDESONIDE 0.5 MG/2 ML AMPUL.NEB INH SCH (20:15)
[2024-03-31 20:16] VITALS: O2SAT 96
[2024-03-31] MEDS ORDERED: METOPROLOL TARTRATE 50 MG TABLET PO SCH (21:00)
[2024-03-31] MEDS: OLANZapine 10 MG TABLET PO SCH (21:30)
[2024-03-31] MEDS: traZODone HCL 50 MG TABLET (DESYREL) PO SCH (21:30)
[2024-03-31] MEDS: BENZTROPINE MESYLATE 1 MG TABLET PO SCH (21:30)
[2024-03-31] MEDS: BACLOFEN 10 MG TABLET PO SCH (21:30)
[2024-04-01] MEDS ORDERED: CITALOPRAM HYDROBROMIDE 20 MG TABLET PO SCH (09:00)
[2024-04-01] MEDS ORDERED: predniSONE 20 MG TABLET PO SCH (09:00)
[2024-04-01] MEDS ORDERED: CHOLECALCIFEROL (VITAMIN D3) 2,000 UNIT TABLET PO SCH (09:00)
[2024-04-01] MEDS ORDERED: METOPROLOL SUCCINATE 50 MG TAB.SR.24H (TOPROL XL) PO SCH (09:00)
[2024-04-01] MEDS ORDERED: ASPIRIN 81 MG TABLET(ECOTRIN) PO SCH (09:00)
== END 2024-04-01 23:00 | DRG 871 ==
LOC: SED 17:58 → SIC 22:03 → SMU 03-30 12:00 → STU 03-30 17:01 → UNDODISIN 03-31 23:00
PROVIDERS: ADMIT Preventive Medicine Preventive Medicine/Occupational Environmental Medicine; ATTEND Preventive Medicine Preventive Medicine/Occupational Environmental Medicine
PROC: 5A09357 Assistance with Respiratory Ventilation, Less than 24 Consecutive Hours, Continuous Positive Airway Pressure (ICD-10-PCS; 2024-03-24)
PROC: 05HB33Z Insertion of Infusion Device into Right Basilic Vein, Percutaneous Approach (ICD-10-PCS; principal; 2024-03-25)
PROC: 5A09357 Assistance with Respiratory Ventilation, Less than 24 Consecutive Hours, Continuous Positive Airway Pressure (ICD-10-PCS; 2024-03-25)
PROC: 5A09357 Assistance with Respiratory Ventilation, Less than 24 Consecutive Hours, Continuous Positive Airway Pressure (ICD-10-PCS; 2024-03-26)
PROC: 5A0945A Assistance with Respiratory Ventilation, 24-96 Consecutive Hours, High Flow/Velocity Cannula (ICD-10-PCS; 2024-03-26)
PROC: 5A0935A Assistance with Respiratory Ventilation, Less than 24 Consecutive Hours, High Flow/Velocity Cannula (ICD-10-PCS; 2024-03-28)
DX: A41.9 Sepsis, unspecified organism (principal); G93.41 Metabolic encephalopathy; I21.4 Non-ST elevation (NSTEMI) myocardial infarction; J96.21 Acute and chronic respiratory failure with hypoxia; J96.22 Acute and chronic respiratory failure with hypercapnia; R65.21 Severe sepsis with septic shock; J11.00 Influenza due to unidentified influenza virus with unspecified type of pneumonia; J18.9 Pneumonia, unspecified organism; J44.0 Chronic obstructive pulmonary disease with (acute) lower respiratory infection; M62.82 Rhabdomyolysis; I50.42 Chronic combined systolic (congestive) and diastolic (congestive) heart failure; N39.0 Urinary tract infection, site not specified; D69.6 Thrombocytopenia, unspecified; I11.0 Hypertensive heart disease with heart failure; Z20.822 Contact with and (suspected) exposure to COVID-19; R53.81 Other malaise; E83.52 Hypercalcemia; B19.20 Unspecified viral hepatitis C without hepatic coma; E88.09 Other disorders of plasma-protein metabolism, not elsewhere classified; Z88.1 Allergy status to other antibiotic agents; Z79.899 Other long term (current) drug therapy; Z79.82 Long term (current) use of aspirin
CPT/HCPCS: 36415; 36600; 70450-TC; 71045; 80048; 80053; 80076; 81000; 81001; 81015; 82550; 82553; 82803; 82948; 83605; 83615; 83735; 83880; 84100; 84484; 85007; 85025; 85027; 85379; 85610; 85651; 85730; 87040; 87081; 87086; 87186; 93005; 93306; 94640; 94660; 94760; 97110-GP; 97530-GP; 99291; C1751; G9035; J0612; J0696; J1644; J1650; J1815; J1956; J2060; J2270; J2310; J2930; J3480; J7030; J7042; J7050; J7512; J7626